=== PATIENT | male | born 1950 | race Caucasian/White ===

== ENCOUNTER 2022-06-23 17:00 | Outpatient (CLI) | payer MEDICARE | END 2022-06-23 17:01 | disposition home or self-care (01) | LOC: SLEEPLAB 17:00 | PROVIDERS: ATTEND Physician Assistant | DX: G47.33 Obstructive sleep apnea (adult) (pediatric) (principal); R25.9 Unspecified abnormal involuntary movements; G47.31 Primary central sleep apnea | CPT/HCPCS: 95811 ==